=== PATIENT | female | born 1995 | race Caucasian/White ===

== ENCOUNTER 2024-10-22 11:38 | Observation (INO) | payer BC, SELFPAY ==
[2024-10-22 12:12] LABS: Hematocrit 38.1 % (37.0-47.0); Hemoglobin 13.4 g/dL (12.0-16.0); Mean Corp Hgb Conc. 35.2 g/dL (33.0-37.0); Mean Corpuscular Volume 96.7 fL (81.0-99.0); Platelet Count 162 10^3/uL (130-400); Red Blood Cell Count 3.94 10^6/uL (4.20-5.40); Red Cell Dist. Width 13.3 % (11.5-14.5); White Blood Cell Count 7.9 10^3/uL (4.8-10.8)
[2024-10-22 12:36] LABS: ALT (SGPT) 21 U/L (0-35); AST (SGOT) 33 U/L (14-36); Albumin 3.1 g/dl (3.5-5.0); Alkaline Phosphatase 235 U/L (38-126); Blood Urea Nitrogen 12 mg/dl (7-17); Calcium 8.8 mg/dl (8.4-10.2); Carbon Dioxide 23 mmol/L (22-30); Chloride 103 mmol/L (98-107); Glucose 87 mg/dl (70-99); Potassium 4.2 mmol/L (3.5-5.1); Sodium 132 mmol/L (135-145); Total Bilirubin 0.4 mg/dl (0.2-1.3); Total Protein 5.7 g/dl (6.3-8.2); eGFR > 60.00
[2024-10-22 18:37] VITALS: BP 119/81; BMI 30.7
[2024-10-22] MEDS: TYLENOL 650 MG PO (23:24)
== END 2024-10-23 12:24 | disposition home or self-care (01) ==
LOC: LDRP 11:38
PROVIDERS: ADMITTING PHYSICIAN Obstetrics & Gynecology
DX: R10.9 Unspecified abdominal pain (principal); W00.0XXA Fall on same level due to ice and snow, initial encounter; Y93.01 Activity, walking, marching and hiking; Y92.9 Unspecified place or not applicable; O99.343 Other mental disorders complicating pregnancy, third trimester; F41.9 Anxiety disorder, unspecified; Z3A.38 38 weeks gestation of pregnancy
CPT/HCPCS: 76815; 80053; 85027; 85460; 86850; 86900; 86901; G0378